=== PATIENT | male | born 1945 | race Caucasian/White ===

== ENCOUNTER 2016-11-09 11:36 | Emergency (ER) | payer MEDICARE ==
[~2016-11-09] VITALS: Ht 175.3 cm; Wt 100.0 kg
[~2016-11-09 11:36] MED LIST: BIAX500T PO; FLUC100T41 PO; LISI2.5T55 PO; OXYC15TA PO; PROM25SU8 PO; REST30CA PO; SPRY100T PO
[2016-11-09 11:39] VITALS: BP 166/78; PULSE 80; RESP 20; TEMP 97.8; O2SAT 86
[2016-11-09] MEDS ORDERED: LIB (11:57)
[2016-11-09] MEDS ORDERED: CHLO5CAP3 PO (11:57)
[2016-11-09] MEDS ORDERED: AMLO5TAB2 PO (11:57)
[2016-11-09] MEDS ORDERED: TEMA30CA PO (11:57)
[2016-11-09] MEDS ORDERED: HYDR12.56 PO (12:44)
[2016-11-09] MEDS ORDERED: CLIN1CAP6 PO (12:44)
[2016-11-09 13:13] LABS: AUTOMATED NEUTROPHIL # 2.2 TH/MM3 (1.8-7.7); BASOPHIL % 0.8 % (0.0-2.0); EOSINOPHIL # 0.2 TH/MM3 (0-0.4); EOSINOPHIL % 3.6 % (0.0-4.0); HEMATOCRIT 42.2 % (39.0-51.0); HEMO FLAGS DIFF FINAL; LYMPH % 35.8 % (9.0-44.0); LYMPHOCYTE # 1.5 TH/MM3 (1.0-4.8); MEAN CELL VOLUME 88.4 FL (80.0-100.0); MEAN CORPUSCULAR HEMOGLOBIN 29.7 PG (27.0-34.0); MEAN CORPUSCULAR HGB CONC 33.6 % (32.0-36.0); MONO % 8.3 % (0.0-8.0); NEUT % 51.5 % (16.0-70.0); PLATELET COUNT 247 TH/MM3 (150-450); RED BLOOD COUNT 4.77 MIL/MM3 (4.50-5.90); RED CELL DISTRIBUTION WIDTH 14.6 % (11.6-17.2); WHITE BLOOD COUNT 4.3 TH/MM3 (4.0-11.0)
--- NOTE | 2016-11-09 13:21 | RADRPT ---
EXAM DATE/TIME: 11/09/2016 12:50 [place] COMPARISON: CHEST SINGLE AP, May 20, 2016, 21:54. INDICATIONS : Shortness of breath. Bilateral leg swelling for the past two weeks. MEDICAL HISTORY : Leukemia. SURGICAL HISTORY : None. ENCOUNTER: Initial ACUITY: 2 weeks PAIN SCORE: 0/10 LOCATION: Bilateral chest FINDINGS: The heart is mildly enlarged. The pulmonary vascular pattern is normal. The lungs are clear. CONCLUSION: 1. Cardiomegaly. 2. No acute focal pulmonary infiltrate or pulmonary vascular congestion. José Schultz MD on November 09, 2016 at 13:19 Board Certified Radiologist. This report was verified electronically.
[2016-11-09 13:26] LABS: ANION GAP 5 MEQ/L (5-15); AST (GOT) 41 U/L (15-37); BICARBONATE 28.5 MEQ/L (21.0-32.0); BLOOD UREA NITROGEN 17 MG/DL (7-18); CHLORIDE 103 MEQ/L (98-107); GLOMERULAR FILTRATION RATE 69 ML/MIN (>89); POTASSIUM 3.8 MEQ/L (3.5-5.1); SODIUM (NA) 136 MEQ/L (136-145)
[2016-11-09 13:31] LABS: ALKALINE PHOSPHATASE 66 U/L (45-117); ALT (GPT) 59 U/L (12-78); TOTAL BILIRUBIN ADULT 0.4 MG/DL (0.2-1.0)
[2016-11-09 13:48] VITALS: BP 140/72; PULSE 67; RESP 18; O2SAT 97
[2016-11-09] MEDS ORDERED: FURO1TAB62 PO (14:25)
--- NOTE | 2016-11-09 14:25 | PD ---
HPI Chief Complaint: Chest Pain Time Seen by Provider: 11:51 Travel History International Travel<30 days: No Contact w/Intl Traveler<30days: No Traveled to known affect area: No History of Present Illness HPI 71-year-old man, history of CML, now on in remission, on daily Sprycel. Comes in today complained worsening lower extremity swelling. Patient states that he was feeling well until September. In September he got some flulike symptoms, but he was improving but then got a "bronchial infection". He was placed on some antibiotics for that. He states he was he was seen by Dr. Phan, and there is some concern for pulmonary hypertension related to his chemotherapy medications. He is due to get a VQ scan, CT scan, and echocardiogram. The V/Q and the CT are scheduled for tomorrow. Patient states he is a little bit frustrated because he has not been able to schedule the echocardiogram which he feels his primary physician and the front desk auxiliary both 1. States today he had swelling in his legs that was his back beginning the day as it typically is at the end of the day. Patient is concerned because he looked on the Internet assault possible things could be causing swelling in his legs and because he is on the medicine for the CML. Because of worsening swelling again today emergency department today. History Past Medical History Narrative Medical CML, in remission, on Sprycel Possible hypertension Social History Alcohol Use: No Tobacco Use: No Allergies-Medications (Allergen,Severity, Reaction): Coded Allergies: Bactrim (Verified Allergy, Severe, Anaphylaxis, 11/09/16) Effexor (Verified Allergy, Unknown, 11/09/16) Alprazolam (Verified Adverse Reaction, Severe, Nausea/Vomiting, 11/09/16) Morphine (Verified Adverse Reaction, Severe, Nausea/Vomiting, 11/09/16) Reported Meds & Prescriptions Reported Meds & Active Scripts Active Reported Clindamycin (Clindamycin HCl) 300 Mg Cap 300 Mg PO Q6H Hydrochlorothiazide 12.5 Mg Tab 12.5 Mg PO BID Chlordiazepoxide (Chlordiazepoxide HCl) 5 Mg Cap 5 Mg PO TID PRN [rox] Temazepam 30 Mg Cap 30 Mg PO HS PRN Amlodipine (Amlodipine Besylate) 5 Mg Tab 5 Mg PO DAILY Review of Systems Except as stated in HPI: all other systems reviewed are Neg Physical Exam Narrative GENERAL: 71-year-old man, no acute distress. SKIN: Focused skin assessment warm/dry. HEAD: Atraumatic. Normocephalic. EYES: Pupils equal and round. No scleral icterus. No injection or drainage. ENT: No nasal bleeding or discharge. Mucous membranes pink and moist. NECK: Trachea midline. No JVD. CARDIOVASCULAR: Regular rate and rhythm. No murmur appreciated. RESPIRATORY: No accessory muscle use. Clear to auscultation. Breath sounds equal bilaterally. GASTROINTESTINAL: Abdomen soft, non-tender, nondistended. Hepatic and splenic margins not palpable. MUSCULOSKELETAL: No obvious deformities. Pitting edema bilateral lower extremities. NEUROLOGICAL: Awake and alert. No obvious cranial nerve deficits. Motor grossly within normal limits. Normal speech. PSYCHIATRIC: Appropriate mood and affect; insight and judgment normal. Data Data Last Documented VS Vital Signs Date Time Temp Pulse Resp B/P Pulse Ox O2 Delivery O2 Flow Rate FiO2 11/09/16 13:48 67 18 140/72 97 Room Air 11/09/16 11:39 97.8 Orders Complete Blood Count With Diff (11/09/16 12:33) Comprehensive Metabolic Panel (11/09/16 12:33) Chest, Single Ap (11/09/16 ) B-Type Natriuretic Peptide (11/09/16 12:33) Troponin I (11/09/16 12:33) Electrocardiogram (11/09/16 ) Labs Laboratory Tests Test 11/09/16 12:40 White Blood Count 4.3 TH/MM3 Red Blood Count 4.77 MIL/MM3 Hemoglobin 14.2 GM/DL Hematocrit 42.2 % Mean Corpuscular Volume 88.4 FL Mean Corpuscular Hemoglobin 29.7 PG Mean Corpuscular Hemoglobin 33.6 % Concent Red Cell Distribution Width 14.6 % Platelet Count 247 TH/MM3 Mean Platelet Volume 8.7 FL Neutrophils (%) (Auto) 51.5 % Lymphocytes (%) (Auto) 35.8 % Monocytes (%) (Auto) 8.3 % Eosinophils (%) (Auto) 3.6 % Basophils (%) (Auto) 0.8 % Neutrophils # (Auto) 2.2 TH/MM3 Lymphocytes # (Auto) 1.5 TH/MM3 Monocytes # (Auto) 0.4 TH/MM3 Eosinophils # (Auto) 0.2 TH/MM3 Basophils # (Auto) 0.0 TH/MM3 CBC Comment DIFF FINAL Differential Comment Sodium Level 136 MEQ/L Potassium Level 3.8 MEQ/L Chloride Level 103 MEQ/L Carbon Dioxide Level 28.5 MEQ/L Anion Gap 5 MEQ/L Blood Urea Nitrogen 17 MG/DL Creatinine 1.05 MG/DL Estimat Glomerular Filtration 69 ML/MIN Rate Random Glucose 91 MG/DL Calcium Level 8.6 MG/DL Total Bilirubin 0.4 MG/DL Aspartate Amino Transf 41 U/L (AST/SGOT) Alanine Aminotransferase 59 U/L (ALT/SGPT) Alkaline Phosphatase 66 U/L Troponin I LESS THAN 0.02 NG/ML B-Type Natriuretic Peptide 47 PG/ML Total Protein 7.3 GM/DL Albumin 4.0 GM/DL [facility] Medical Decision Making Medical Screen Exam Complete: Yes Emergency Medical Condition: Yes Differential Diagnosis Review of EKG: Normal sinus rhythm at a rate of 72, normal axis, normal intervals, no acute ischemia. LABS: CBC is unremarkable. CMP is unremarkable. Troponin negative. BNP 47. Chest x-ray: Cardiomegaly. No acute pulmonary infiltrate or pulmonary vascular congestion. Narrative Course Medical decision making 71 male presents with bilateral lower extremity edema. He looks otherwise well. There is no redness or warmth to suggest DVT. He is due for further evaluation as an outpatient. I don't see any evidence of decompensated heart failure, or indications for admission. I spoke with the patient's primary physician, Dr. Colunga. He can see the patient tomorrow if needed. Will follow- up on outpatient tests test scheduled. He is agreeable to adding Lasix. Diagnosis Primary Impression: Lower extremity edema Additional Instructions: Stop hydrochlorothiazide. Take Lasix as prescribed. Follow-up for your diagnostic tests as scheduled. Follow-up with Dr. Colunga in the next 2-4 days. Med/Other Pt SpecificInfo: Prescription(s) given Scripts Furosemide (Lasix)20 Mg Tab20 Mg PO DAILY #15 TAB Ref 0 Prov:Kali Finnegan MD 11/09/16 Disposition: 01 DISCHARGE HOME Condition: Stable Kali Finnegan MD Nov 09, 2016 14:25
--- NOTE | 2016-11-09 14:40 | EKG ---
Date Performed: 11/09/2016 Time Performed: 12:05:01 PTAGE: 71 years EKG: Sinus rhythm NORMAL ECG NO PREVIOUS TRACING DOCTOR: Graeme Hammer Interpretating Date/Time 11/09/2016 14:39:45
== END 2016-11-09 15:12 | disposition home or self-care (01) ==
LOC: NEPC 11:36
DX: R60.0 Localized edema (principal); I51.7 Cardiomegaly
CPT/HCPCS: 71010; 80053; 83880; 84484; 85025; 93005